=== PATIENT | male | born 1980 | race Caucasian/White ===

== ENCOUNTER 2020-03-18 08:13 | Inpatient (IN) | payer SELFPAY ==
[~2020-03-18] VITALS: Ht 170.2 cm; Wt 66.4 kg
[2020-03-18] MEDS ORDERED: ONDANSETRON PF 4 MG/2 ML VIAL. IVP ONE (08:30)
[2020-03-18] MEDS ORDERED: IV NORMAL SALINE 1,000ML 1,000 ML IV SCH (08:30)
[2020-03-18] MEDS ORDERED: FAMOTIDINE 20 MG/2 ML VIAL IVP ONE (08:30)
[2020-03-18 08:57] LABS: CALCIUM 9.5 mg/dL (8.5-10.1); CREATININE 1.2 mg/dL (0.7-1.3); GFR 67.1; POTASSIUM 4.1 mmol/L (3.5-5.1)
[2020-03-18 09:01] LABS: BASO # 0.1 x10^3/uL (0.0-0.2); BASO % 1 % (0-3); EOS % 1 % (0-3); HEMATOCRIT 44.3 % (39.0-53.0); HEMOGLOBIN 14.8 g/dL (13.0-17.5); LYMPH # 1.1 x10^3/uL (1.0-4.8); LYMPH % 12 % (24-48); MEAN CORPUSCULAR HEMOGLOBIN 32 pg (25-35); MEAN CORPUSCULAR HGB CONC 33 g/dL (31-37); MEAN CORPUSCULAR VOLUME 95 fL (79-100); MONO # 0.6 x10^3/uL (0.0-1.1); MONO % 6 % (0-9); NEUT # 7.7 x10^3uL (1.8-7.7); NEUT % 81 % (31-73); PLATELET COUNT 275 x10^3/uL (140-400); RED BLOOD COUNT 4.66 x10^6/uL (4.30-5.70); RED CELL DISTRIBUTION WIDTH 13.8 % (11.5-14.5); WHITE BLOOD COUNT 9.4 x10^3/uL (4.0-11.0)
[2020-03-18 09:04] LABS: ALBUMIN 4.5 g/dL (3.4-5.0); DIRECT BILIRUBIN 0.2 mg/dL (0.0-0.2); TOTAL BILIRUBIN 0.8 mg/dL (0.2-1.0); TOTAL PROTEIN 7.5 g/dL (6.4-8.2)
[2020-03-18] MEDS ORDERED: HALOPERIDOL LACT 5 MG/ML VIAL. IVP ONE (09:15)
[2020-03-18] MEDS ORDERED: IOHEXOL 300 MG/ML 75 ML VIAL. IV ONE (09:30)
[2020-03-18] MEDS ORDERED: CONTRAST GIVEN. MC PRN (09:30)
--- NOTE | 2020-03-18 10:43 | RAD ---
EXAMINATION: CT ABDOMEN+PELVIS W (CT ABDOMEN/PELVIS WITH IV CONTRAST) CLINICAL HISTORY: Right upper quadrant pain TECHNIQUE: CT of the abdomen and pelvis was performed using standard technique, scanning from just ab ove the dome of the diaphragm to the symphysis pubis following administration of intravenous contrast . CT Dose Reduction Employed: One or more of the following individualized dose reduction techniques wer e utilized for this examination: 1. Automated exposure control 2. Adjustment of the mA and/or kV ac cording to patient size 3. Use of iterative reconstruction technique. COMPARISON: None FINDINGS: Partially visualized heart and lung bases unremarkable. Periportal edema. No focal hepatic lesion. No definite biliary ductal dilation. Cholecystectomy. Panc reas, spleen, adrenal glands, and kidneys unremarkable. Mildly filled urinary bladder. No pelvic mass or free fluid. No bowel dilation or definite wall thickening, though lack of adequate distention throughout much of the colon limits evaluation for wall thickening. No abdominal aortic or iliac artery aneurysm. No significant lymphadenopathy. No acute osseous abnormality. IMPRESSION: Nonspecific periportal edema, otherwise no evidence of acute abdominopelvic abnormality. Electronically signed by: Ralph Chinchilla DO (03/18/2020 10:41 AM) APRIL
[2020-03-18] MEDS ORDERED: HYDROmorphone PF 1 MG/ML DISP.SYRIN IVP ONE (11:15)
--- NOTE | 2020-03-18 11:20 | PHYS DOC ---
Past History Past Medical History: Pancreatitis Past Surgical History: Cholecystectomy Alcohol Use: None General Adult EDM: Chief Complaint: ABDOMINAL PAIN HPI: HPI: 39-year-old male past medical history significant for pancreatitis and daily marijuana use, presents to the ED with complaints of "I just got to sleep, I've been having belly pain with nausea and vomiting," that started 3 or 4 days ago with associated nausea, nonbloody nonbilious vomiting and loose watery diarrhea. Patient reports he routinely has pancreatitis approximately every year and was last admitted 1 year ago. Patient reports his daily marijuana use helps his stomach problems-last smoked this morning. History of cholecystectomy 5 years ago. Has no routine primary care physician and does not take daily medications. Denies any alcohol or IV drug use. When asked the cause of his pancreatitis he says, my diet," that he was advised to avoid fatty and greasy foods. Denies any h/o cannabinoid hyperemesis syndrome. Reports no sick contacts and has not had Covid. Diarrhea is 3-4 episodes daily. No recent antibiotics. Review of Systems: Review of Systems: Constitutional: Denies fever or chills Eyes: Denies change in visual acuity HENT: Denies nasal congestion or sore throat Respiratory: Denies cough or shortness of breath or hemoptysis Cardiovascular: Denies chest pain or edema GI: Denies melena, hematochezia, hematemesis : Denies dysuria Musculoskeletal: Denies back pain or joint pain Integument: Denies rash Neurologic: Denies headache, focal weakness or sensory changes Endocrine: Denies polyuria or polydipsia Lymphatic: Denies swollen glands Psychiatric: Denies depression or anxiety Current Medications: Current Meds: Current Medications Medications (Trade) Dose Ordered Sig/Antoni Start Time Stop Time Status Last Admin Dose Admin Famotidine (Pepcid Vial) 20 mg 1X ONCE 03/18/20 08:30 03/18/20 08:37 DC 03/18/20 08:50 20 MG Haloperidol Lactate (Haldol) 5 mg 1X ONCE 03/18/20 09:15 03/18/20 09:21 DC Hydromorphone HCl (Dilaudid) 1 mg 1X ONCE 03/18/20 11:15 03/18/20 11:16 DC Info (Do NOT chart on this entry -- for MONITORING) 1 each PRN DAILY PRN 03/18/20 09:30 12/14/20 09:29 Iohexol (Omnipaque 300 Mg/ml) 75 ml 1X ONCE 03/18/20 09:30 03/18/20 09:31 DC Ondansetron HCl (Zofran) 4 mg 1X ONCE 03/18/20 08:30 03/18/20 08:37 DC 03/18/20 08:50 4 MG Sodium Chloride 1,000 ml @ 1,000 mls/hr Q1H 03/18/20 08:30 03/18/20 09:29 DC 03/18/20 08:49 1,000 MLS/HR Allergies: Allergies: Allergies Coded Allergies Type Severity Reaction Last Updated Verified No Known Drug Allergies 03/18/20 No Physical Exam: PE: Constitutional: no acute distress, non-toxic appearance, sleeping in ed room, comfrtable appearing, hops out of stretcher to show me location of abdominal pain HENT: Normocephalic, atraumatic, Eyes: EOMI, conjunctiva normal, no discharge. Neck: Normal range of motion, supple, Cardiovascular: S1/2 present, regular rhythm Lungs & Thorax: Speaking in full sentences, bilateral equal chest rise, no tachypnea or increased work of breathing Abdomen: soft, ruq ttp, no active n/v Skin: Warm, dry, no erythema, no rash. [] Back: No tenderness, no CVA tenderness. [] Extremities: No tenderness, no cyanosis, no edema Neurologic: Alert and oriented X 3, normal motor function, normal sensory function, no focal deficits noted. [] Psychologic: Affect normal, judgement normal, mood normal. [] Current Patient Data: Labs: Laboratory Tests Test 03/18/20 08:25 White Blood Count 9.4 x10^3/uL (4.0-11.0) Red Blood Count 4.66 x10^6/uL (4.30-5.70) Hemoglobin 14.8 g/dL (13.0-17.5) Hematocrit 44.3 % (39.0-53.0) Mean Corpuscular Volume 95 fL (79-100) Mean Corpuscular Hemoglobin 32 pg (25-35) Mean Corpuscular Hemoglobin Concent 33 g/dL (31-37) Red Cell Distribution Width 13.8 % (11.5-14.5) Platelet Count 275 x10^3/uL (140-400) Neutrophils (%) (Auto) 81 % (31-73) H Lymphocytes (%) (Auto) 12 % (24-48) L Monocytes (%) (Auto) 6 % (0-9) Eosinophils (%) (Auto) 1 % (0-3) Basophils (%) (Auto) 1 % (0-3) Neutrophils # (Auto) 7.7 x10^3uL (1.8-7.7) Lymphocytes # (Auto) 1.1 x10^3/uL (1.0-4.8) Monocytes # (Auto) 0.6 x10^3/uL (0.0-1.1) Eosinophils # (Auto) 0.0 x10^3/uL (0.0-0.7) Basophils # (Auto) 0.1 x10^3/uL (0.0-0.2) Sodium Level 141 mmol/L (136-145) Potassium Level 4.1 mmol/L (3.5-5.1) Chloride Level 104 mmol/L (98-107) Carbon Dioxide Level 27 mmol/L (21-32) Anion Gap 10 (6-14) Blood Urea Nitrogen 21 mg/dL (8-26) Creatinine 1.2 mg/dL (0.7-1.3) Estimated GFR (Cockcroft-Gault) 67.1 Glucose Level 128 mg/dL (70-99) H Calcium Level 9.5 mg/dL (8.5-10.1) Total Bilirubin 0.8 mg/dL (0.2-1.0) Direct Bilirubin 0.2 mg/dL (0.0-0.2) Aspartate Amino Transferase (AST) 17 U/L (15-37) Alanine Aminotransferase (ALT) 26 U/L (16-63) Alkaline Phosphatase 38 U/L (46-116) L Creatine Kinase 160 U/L (39-308) Troponin I Quantitative < 0.017 ng/mL (0-0.055) Total Protein 7.5 g/dL (6.4-8.2) Albumin 4.5 g/dL (3.4-5.0) Lipase 1218 U/L (73-393) H Vital Signs: Vital Signs Date Time Temp Pulse Resp B/P (MAP) Pulse Ox O2 Delivery O2 Flow Rate FiO2 03/18/20 08:34 97.4 53 18 112/57 (75) 99 Room Air EKG: EKG: Sinus arrhythmia at 68 bpm, no axis deviation, normal intervals, T wave inversion V2, no ST elevations or ST depressions Radiology/Procedures: Radiology/Procedures: IMAGING REPORT Signed PATIENT: DARRIN SINGH ACCOUNT: [id number] : 1980 LOCATION: ER AGE: 39 SEX: M EXAM STATUS: REG ER ORD. PHYSICIAN: KEYANA GONZALES DO REASON: ruq pain PROCEDURE: CT ABD PELV W/ IV CONTRST ONLY EXAMINATION: CT ABDOMEN+PELVIS W (CT ABDOMEN/PELVIS WITH IV CONTRAST) CLINICAL HISTORY: Right upper quadrant pain TECHNIQUE: CT of the abdomen and pelvis was performed using standard technique, scanning from just above the dome of the diaphragm to the symphysis pubis following administration of intravenous contrast. CT Dose Reduction Employed: One or more of the following individualized dose reduction techniques were utilized for this examination: 1. Automated exposure control 2. Adjustment of the mA and/or kV according to patient size 3. Use of iterative reconstruction technique. COMPARISON: None FINDINGS: Partially visualized heart and lung bases unremarkable. Periportal edema. No focal hepatic lesion. No definite biliary ductal dilation. Cholecystectomy. Pancreas, spleen, adrenal glands, and kidneys unremarkable. Mildly filled urinary bladder. No pelvic mass or free fluid. No bowel dilation or definite wall thickening, though lack of adequate distention throughout much of the colon limits evaluation for wall thickening. No abdominal aortic or iliac artery aneurysm. No significant lymphadenopathy. No acute osseous abnormality. IMPRESSION: Nonspecific periportal edema, otherwise no evidence of acute abdominopelvic abnormality. Electronically signed by: Ralph Forrester DO (03/18/2020 10:41 AM) [facility] DICTATED AND SIGNED BY: RALPH FORRESTER DO DATE: 03/18/20 1026 CC: PCP,JOHNNY; KEYANA GONZALES DO ~MTH0 0 Heart Score: Risk Factors: Risk Factors: DM, Current or recent (<one month) smoker, HTN, HLP, family history of CAD, obesity. Risk Scores: Score 0 - 3: 2.5% MACE over next 6 weeks - Discharge Home Score 4 - 6: 20.3% MACE over next 6 weeks - Admit for Clinical Observation Score 7 - 10: 72.7% MACE over next 6 weeks - Early Invasive Strategies Course & Med Decision Making: Course & Med Decision Making Pertinent Labs and Imaging studies reviewed. (See chart for details) Concern for acute pancreatitis, nausea and vomiting well controlled. Patient afebrile with no leukocytosis, normal liver functions. Drug screen pending. CT abdomen pelvis with nonspecific periportal edema. Patient n.p.o. and started on fluids/analgesia. Accepted by Dr. Pierre for medical admission. Patient stable at time of admission and agrees with this plan. I have spoken with the patient and/or caregivers. I have explained the patient's condition, diagnosis and treatment plan based on the information available to me at this time. I have answered the patient's and/or caregivers questions and answered any concerns. The patient and/or caregivers have as good an understanding of the patient's diagnosis, condition and treatment plan as can be expected at this point. The patient has been stabilized within the capability of the emergency department. The patient will be transported for further care and management or will be moved to an observation or inpatient service. I have communicated with the staff or medical practitioner taking over this patient's care. Bradley Disclaimer: Bradley Disclaimer: This electronic medical record was generated, in whole or in part, using a voice recognition dictation system. Departure Departure: Impression: Primary Impression: Acute pancreatitis Disposition: ADMITTED INPT THIS HOSP Admitting Physician: Quentin Pierre Condition: STABLE Referrals: PCP,JOHNNY (PCP) KEYANA GONZALES DO Mar 18, 2020 11:20
[2020-03-18] MEDS ORDERED: ONDANSETRON PF 4 MG/2 ML VIAL. IVP PRN (11:30)
[2020-03-18 12:47] VITALS: BP 105/60
[2020-03-18] MEDS: HYDROmorphone PF 1 MG/ML DISP.SYRIN IV PRN ×2 (14:11→19:33)
[2020-03-18] MEDS: IV NORMAL SALINE 1,000ML 1,000 ML IV SCH (14:11)
[2020-03-18 14:35] VITALS: BP 122/74
--- NOTE | 2020-03-18 16:01 | EKG ---
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
[2020-03-18 20:04] VITALS: BP 111/65
[2020-03-18 23:42] VITALS: BP 122/76
[2020-03-19] MEDS: IV NORMAL SALINE 1,000ML 1,000 ML IV SCH (00:09)
[2020-03-19] MEDS: HYDROmorphone PF 1 MG/ML DISP.SYRIN IV PRN ×2 (00:47→07:47)
[2020-03-19 05:51] VITALS: BP 113/67
[2020-03-19] MEDS ORDERED: FLU VACC QS 2020-21(6MOS+)/PF 0.5 ML SYRINGE. VAX IM ONE (09:00)
--- NOTE | 2020-03-19 10:51 | HP ---
ADMIT DATE: 03/18/2020 ATTENDING PHYSICIAN: Dr. Martines. CHIEF COMPLAINT: Abdominal pain. HISTORY OF PRESENT ILLNESS: The patient is a 39-year-old gentleman admitted through the ED with abdominal pain, diffuse in nature with nausea and one episode of emesis started about 3 days ago. He has had nonbloody, nonbilious vomiting and loose watery stools. He was found to have pancreatitis. The CT scan was not confirmatory, but the lipase is elevated at 1200. He reports daily marijuana use to help with nausea. He had a cholecystectomy 5 years ago. He adamantly denies any alcohol use. No other recreational drugs besides a pot. He has no routine care. He is unemployed. He is not on any medications. He does not have cholesterol issues by history. When asked about the cause of the pancreatitis, he said my diet. He denies any cannabinoid hyperemesis syndrome. No sick contact, no recent COVID exposure. Diarrhea is 3-4 episodes a day. PAST MEDICAL HISTORY: Significant for cholecystectomy, recurrent idiopathic pancreatitis, chronic marijuana use. No history of high blood pressure or diabetes. FAMILY HISTORY: There is no reported history of cancer in the family, heart disease or diabetes. SOCIAL HISTORY: He is a smoker. He denies any alcohol use, has not drank alcohol since 2015. CURRENT MEDICATIONS: None. ALLERGIES: He has no known drug allergies. PAST SURGICAL HISTORY: Cholecystectomy. REVIEW OF SYSTEMS: Significant for the GI symptoms. No recent COVID exposure. No fevers or chills. No palpitation. All other systems reviewed and determined to be negative. PHYSICAL EXAMINATION: GENERAL: When I saw him, this is a pleasant male in no acute distress. INITIAL VITAL SIGNS: Showed a blood pressure 113/67, temperature 97.7 degrees Fahrenheit, pulse is 61 and regular, oxygen saturation 99% on room air. HEENT: Head is without trauma. Pupils are reactive. Sclerae are nonicteric. Oropharynx is clear. NECK: Supple, no bruits identified. LUNGS: Otherwise clear. CARDIOVASCULAR: Showed regular heart tones. ABDOMEN: Soft. There is no guarding or rebound tenderness. Bowel sounds were normoactive. There are no masses palpated. EXTREMITIES: Showed no cyanosis or edema. NEUROLOGIC: Focally intact. Speech is fluent. Marketing Analytics Manager intact and symmetrical. SKIN: Warm and dry. PERTINENT LABORATORY AND X-RAY STUDIES: Lipase was 1218. Cardiac enzymes negative. Electrolytes within normal range. White count 9400 with a hemoglobin of 14.8 g/dL. CT scan showed no obvious pancreatic inflammation, no obstructive pattern identified. ASSESSMENT: 1. A 39-year-old gentleman with idiopathic pancreatitis. 2. History of previous cholecystectomy. 3. History of marijuana use. 4. Associated nausea and diarrhea. PLAN: 1. Observation status in the ED. 2. N.p.o. 3. Pain and nausea control. 4. Gentle IV hydration. MARY MARTINES MD DR: EDNA/sasha JOB#: [id number] / [id number]
--- NOTE | 2020-03-19 19:12 | DS ---
DATE OF DISCHARGE: 03/19/2020 ATTENDING PHYSICIAN: Dr. Martines. FINAL DISCHARGE DIAGNOSES: 1. Recurrent idiopathic pancreatitis. 2. History of previous cholecystectomy. 3. Nausea with diarrhea, resolved. HISTORY AND PHYSICAL: This is a 39-year-old gentleman who admits to chronic daily marijuana use. He does not drink any alcohol. His gallbladder has been removed. He has recurrent pancreatitis occurring once or twice a year. He has no idea of symptoms. He has no local physician. His compliance is questionable and he adamantly denies any alcohol use. He was admitted then for treatment of idiopathic pancreatitis. He had a lipase level of 1218. However, the CT of the abdomen did not verify any inflammation around the pancreas. PHYSICAL EXAMINATION: Please see the dictated note. PERTINENT LABORATORY AND X-RAY STUDIES: CBC showed a hemoglobin 14.8 grams and white count 9400. Electrolytes within normal range. Blood sugars were normal. Lipase was 1218. CT of the abdomen and pelvis as noted. COURSE IN THE HOSPITAL: The patient was admitted overnight. He was given IV hydration, kept n.p.o. The next day, he felt better and he wanted to eat. We advanced his diet. He tolerated this well. His physical exam was mostly unremarkable. He wanted to go home. I felt this is reasonable. I recommend a very bland diet sparingly and Gatorade orally. In addition, he requested some pain medicine. He responded well to Ultram 100 mg p.o. q.8 hours as needed. In addition, I strongly suggested he find a primary care doctor. Whether or not he will accomplish this remains to be seen. In any event, the patient was then discharged from our hospital the next hospital day in stable condition with explicit instructions for followup care. MARY MARTINES MD DR: EDNA/sasha JOB#: [id number] / [id number]
== END 2020-03-19 09:02 | disposition home or self-care (01) | DRG 440 ==
LOC: ER 08:13 → 1 SOUTH 12:16
PROVIDERS: ADMIT Hospitalist; ATTEND Hospitalist
DX: K85.90 Acute pancreatitis without necrosis or infection, unspecified (principal); K86.1 Other chronic pancreatitis; Z90.49 Acquired absence of other specified parts of digestive tract; F17.200 Nicotine dependence, unspecified, uncomplicated; F12.90 Cannabis use, unspecified, uncomplicated
CPT/HCPCS: 36415; 74177; 80048; 80076; 82550; 83690; 84484; 85025; 90471; 90686; 93005; 96374; 96375; J1170; J2405; J3490; 99285-25; J7030

== ENCOUNTER 2020-03-29 12:06 | Emergency (ER) | payer SELFPAY ==
[~2020-03-29] VITALS: Ht 170.2 cm; Wt 66.0 kg
[2020-03-29] MEDS ORDERED: PROCHLORPERAZINE 10 MG/2 ML VIAL. IV ONE (12:15)
[2020-03-29] MEDS ORDERED: IV NORMAL SALINE 1,000ML 1,000 ML IV ONE (12:15)
[2020-03-29] MEDS ORDERED: MORPHINE SULFATE 4 MG/ML DISP.SYRIN. IV ONE ×2 (12:15→14:00)
--- NOTE | 2020-03-29 12:31 | PHYS DOC ---
Past History Past Medical History: Pancreatitis (MAGDALENE ALCANTARA APRN) Past Surgical History: Cholecystectomy (MAGDALENE ALCANTARA APRN) Alcohol Use: None (MAGDALENE ALCANTARA APRN) General Adult EDM: Chief Complaint: ABDOMINAL PAIN HPI: HPI: Patient is a 39-year-old male who presents with abdominal pain, nausea. Patient was seen in the ER 2 weeks ago and admitted to the hospital for pancreatitis. Patient has a history of chronic pancreatitis. Patient states he woke up at 430 this morning with pain and vomiting and unable to keep anything down. Patient is rating pain 10 out of 10. Patient denies fever. Patient states that he has not used alcohol since 2015. (MAGDALENE ALCANTARA APRN) Review of Systems: Review of Systems: Constitutional: Denies fever or chills Eyes: Denies change in visual acuity HENT: Denies nasal congestion or sore throat Respiratory: Denies cough or shortness of breath Cardiovascular: Denies chest pain or edema GI: Reports abdominal pain, nausea, vomiting. Denies bloody stools or diarrhea : Denies dysuria Musculoskeletal: Denies back pain or joint pain Integument: Denies rash Neurologic: Denies headache, focal weakness or sensory changes Endocrine: Denies polyuria or polydipsia Lymphatic: Denies swollen glands Psychiatric: Denies depression or anxiety (MAGDALENE ALCANTARA APRN) Current Medications: Current Meds: Current Medications Medications (Trade) Dose Ordered Sig/Antoni Start Time Stop Time Status Last Admin Dose Admin Morphine Sulfate (Morphine 4mg Syringe) 4 mg 1X ONCE 03/29/20 12:15 03/29/20 12:25 DC Prochlorperazine Edisylate (Compazine) 10 mg 1X ONCE 03/29/20 12:15 03/29/20 12:25 DC Sodium Chloride 1,000 ml @ 1,000 mls/hr 1X ONCE 03/29/20 12:15 03/29/20 13:14 (MAGDALENE ALCANTARA APRN) Allergies: Allergies: Allergies Coded Allergies Type Severity Reaction Last Updated Verified No Known Drug Allergies 03/18/20 No (MAGDALENE ALCANTARA APRN) Physical Exam: PE: Constitutional: Well developed, well nourished, no acute distress, non-toxic appearance. [] HENT: Normocephalic, atraumatic, bilateral external ears normal, oropharynx moist, no oral exudates, nose normal. [] Eyes: PERRLA, EOMI, conjunctiva normal, no discharge. [] Neck: Normal range of motion, no tenderness, supple, no stridor. [] Cardiovascular:Heart rate regular rhythm, no murmur [] Lungs & Thorax: Bilateral breath sounds clear to auscultation [] Abdomen: Bowel sounds normal, soft, no masses, no pulsatile masses. Tender to palpation [] Skin: Warm, dry, no erythema, no rash. [] Back: No tenderness, no CVA tenderness. [] Extremities: No tenderness, no cyanosis, no clubbing, ROM intact, no edema. [] Neurologic: Alert and oriented X 3, normal motor function, normal sensory function, no focal deficits noted. [] Psychologic: Affect normal, judgement normal, mood normal. [] (MAGDALENE ALCANTARA APRN) EKG: EKG: Sinus rhythm, heart rate 52 bpm. Intervals normal, axis normal. Otherwise normal EKG. [] (MAGDALENE ALCANTARA APRN) Radiology/Procedures: Radiology/Procedures: []Right upper quadrant ultrasound 03/29/2020 INDICATION: Abdominal pain. History of pancreatitis. COMPARISON STUDY: None FINDINGS: Visualized pancreas is mildly heterogenous echotexture which could reflect pancreatitis. Visualized aorta is unremarkable. Visualized IVC is unremarkable. The right kidney is normal in appearance measuring 10 point centimeters in length. Hepatic parenchyma is grossly unremarkable. Focal liver lesions are identified. The gallbladder is surgically absent. Given this, the common bile duct is within normal limits in regards to diameter at 6 mm. No choledocholithiasis is identified by ultrasound. No ascites is identified. IMPRESSION: 1. No definitively acute abnormality is identified 2. Mild pancreatic heterogeneity is nonspecific but could reflect pancreatitis. Electronically signed by: Ren Rowe MD (03/29/2020 1:18 PM) [id number] EXAM: CT Abdomen with IV contrast INDICATION: Reason: abnormal labs, epigastric pain, pancreatitis / Spl. Instructions: PLEASE COMPARE TO EXAM 03/18 / History: TECHNIQUE: Multi-detector row CT images were acquired from the lung bases through the abdomen with the use of IV contrast. Sagittal and coronal images were acquired from the transaxial data. All CT scans performed at this facility utilize dose optimization techniques as appropriate to the exam, including the following: Automated exposure control and adjustment of the mA and/or KV according to patient size (this includes techniques or standardized protocols for targeted exams where dose is indication/reason for exam). IV CONTRAST: Administered ORAL CONTRAST: none COMPARISON: None FINDINGS: LOWER CHEST: Unremarkable LIVER: Unremarkable BILIARY SYSTEM: Gallbladder is surgically absent. Bile ducts are not dilated. PANCREAS: Unremarkable SPLEEN: Unremarkable ADRENALS: Unremarkable KIDNEYS & URETERS: Unremarkable GASTROINTESTINAL: The stomach, small bowel, and colon are unremarkable. There is borderline wall thickening in the distal thoracic esophagus. The appendix is normal. MESENTERY/PERITONEUM/RETROPERITONEUM: Unremarkable VASCULAR: Unremarkable LYMPH NODES: No adenopathy OSSEOUS & SOFT TISSUES: Unremarkable IMPRESSION: Borderline wall thickening of the distal thoracic esophagus. Correlate clinic ally for any evidence of esophagitis. Otherwise no CT abnormality is seen to explain the patient's symptoms. Electronically signed by: Kodi Fan MD (03/29/2020 2:27 PM) [id number] (MAGDALENE ALCANTARA APRN) Heart Score: Risk Factors: Risk Factors: DM, Current or recent (<one month) smoker, HTN, HLP, family history of CAD, obesity. Risk Scores: Score 0 - 3: 2.5% MACE over next 6 weeks - Discharge Home Score 4 - 6: 20.3% MACE over next 6 weeks - Admit for Clinical Observation Score 7 - 10: 72.7% MACE over next 6 weeks - Early Invasive Strategies (MAGDALENE ALCANTARA APRN) Course & Med Decision Making: Course & Med Decision Making Pertinent Labs and Imaging studies reviewed. (See chart for details) [] 39-year-old male presents with abdominal pain, nausea. Patient has a history of chronic pancreatitis. Will order abdominal ultrasound. Patient given 4 mg of morphine for pain and Compazine for nausea. US showed, No definitively acute abnormality is identified. Mild pancreatic heterogeneity is nonspecific but could reflect pancreatitis. Reassess patient's pain, patient reports pain much better and denies nausea. Patient is concerned about going home due to not being able to manage the pain. Patient states he was given Ultram for the pain when he was discharged, but unable to take it because of vomiting. Patient requesting pain medication. 4mg morphine given. Patient denies nausea. CT abdomen with contrast ordered. CT showed Borderline wall thickening of the distal thoracic esophagus. Correlate clinically for any evidence of esophagitis. Otherwise no CT abnormality is seen to explain the patient's symptoms. We will discharge patient to home. Patient to continue taking Ultram as prescribed for pain. Will prescribe pantoprazole for esophagitis. Patient to follow-up with PCP or return to ED with worsening symptoms. (MAGDALENE ALCANTARA APRN) Course & Med Decision Making I oversaw on the above date of service of this patient and discussed the care with the [employer]AL [employer]. I personally saw and evaluated patient and repeated certain aspects of history and physical exam, hemodynamically stable without any acute abdomen. I agree with the findings, plan of care, and disposition as documented. (SHANELL DOBSON DO) Bradley Disclaimer: Bradley Disclaimer: This electronic medical record was generated, in whole or in part, using a voice recognition dictation system. (MAGDALENE ALCANTARA APRN) Departure Departure: Impression: Primary Impression: Esophagitis Additional Impression: Pancreatitis Qualified Codes: K86.1 - Other chronic pancreatitis Disposition: 01 DC HOME SELF CARE/HOMELESS Condition: IMPROVED Referrals: PCP,NO (PCP) Patient Instructions: Esophagitis Additional Instructions: EMERGENCY DEPARTMENT GENERAL DISCHARGE INSTRUCTIONS Thank you for coming to [facility] (ED) today and trusting us with you care. We trust that you had a positivie experience in our Emergency Department. If you wish to speak to the department management, you may call the director at [phone]. YOUR FOLLOW UP INSTRUCTIONS ARE FOLLOWS: 1. Do you have a private Doctor? If you do not have a private doctor, please ask for a resource list of physicians or clinics that may be able to assist you with follow up care. 2. The Emergency Physician has interpreted your x-rays. The X-Ray specialist will also review them. If there is a change in the findings, you will be notified in 48 hours when at all possible. 3. A lab test or culture has been done, your results will be reviewed and you will be notified if you need a change in treatment. ADDITIONAL INSTRUCTIONS AND INFORMATION: 1. Your care today has been supervised by a physician who is specially trained in emergency care. Many problems require more than one evaluation for a complete diagnosis and treatment. We recommend that you schedule your follow up appointment as recommended to ensure complete treatment of you illness or injury. If you are unable to obtain follow up care and continue to have a problem, or if your condition worsens, we recommend that you return to the ED. 2. We are not able to safely determine your condition over the phone nor are we able to give sound medical advice over the phone. For these safety reasons, if you call for medical advice we will ask you to come to the ED for further evaluation. 3. If you have any questions regarding these discharge instructions please call the ED at [phone]. SAFETY INFORMATION: In the interest of safety, wellness, and injury prevention; we encourage you to wear your sealbelt, if you smoke; quite smoking, and we encourage family to use a protective helmet for bicycling and other sporting events that present an increased risk for head injury. IF YOUR SYMPTOMS WORSEN OR NEW SYMPTOMS DEVELOP, OR YOU HAVE CONCERNS ABOUT YOUR CONDITION; OR IF YOUR CONDITION WORSENS WHILE YOU ARE WAITING FOR YOUR FOLLOW UP APPOINTMENT; EITHER CONTACT YOUR PRIMARY CARE DOCTOR, THE PHYSICIAN WHOSE NAME AND NUMBER YOU WERE GIVEN, OR RETURN TO THE ED IMMEDIATELY. Scripts Ondansetron Hcl (ZOFRAN) 4 Mg Tablet 4 MG PO TID PRN PRN for NAUSEA, #9 TAB Prov: MAGDALENE ALCANTARA APRN 03/29/20 Pantoprazole Sodium (PANTOPRAZOLE SODIUM) 40 Mg Tablet.dr 40 MG PO DAILY for esophagitis for 30 Days, #30 TAB Prov: MAGDALENE ALCANTARA APRN 03/29/20 MAGDALENE ALCANTARA APRN Mar 29, 2020 12:31 SHANELL DOBSON DO Mar 30, 2020 07:49
[2020-03-29 13:03] LABS: BASO # 0.1 x10^3/uL (0.0-0.2); BASO % 1 % (0-3); EOS % 0 % (0-3); HEMATOCRIT 43.2 % (39.0-53.0); HEMOGLOBIN 14.6 g/dL (13.0-17.5); LYMPH % 11 % (24-48); MEAN CORPUSCULAR HEMOGLOBIN 32 pg (25-35); MEAN CORPUSCULAR HGB CONC 34 g/dL (31-37); MEAN CORPUSCULAR VOLUME 93 fL (79-100); MONO # 0.3 x10^3/uL (0.0-1.1); MONO % 4 % (0-9); NEUT # 7.9 x10^3uL (1.8-7.7); NEUT % 85 % (31-73); PLATELET COUNT 320 x10^3/uL (140-400); RED BLOOD COUNT 4.63 x10^6/uL (4.30-5.70); RED CELL DISTRIBUTION WIDTH 13.5 % (11.5-14.5); WHITE BLOOD COUNT 9.2 x10^3/uL (4.0-11.0)
[2020-03-29 13:11] LABS: CALCIUM 9.9 mg/dL (8.5-10.1); GFR 82.8; POTASSIUM 3.7 mmol/L (3.5-5.1)
--- NOTE | 2020-03-29 13:12 | EKG ---
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
[2020-03-29 13:17] LABS: ALBUMIN 4.6 g/dL (3.4-5.0); ALBUMIN/GLOBULIN RATIO 1.5 (1.0-1.7); TOTAL PROTEIN 7.6 g/dL (6.4-8.2)
--- NOTE | 2020-03-29 13:20 | RAD ---
Right upper quadrant ultrasound 03/29/2020 INDICATION: Abdominal pain. History of pancreatitis. COMPARISON STUDY: None FINDINGS: Visualized pancreas is mildly heterogenous echotexture which could reflect pancreatitis. V isualized aorta is unremarkable. Visualized IVC is unremarkable. The right kidney is normal in appear ance measuring 10 point centimeters in length. Hepatic parenchyma is grossly unremarkable. Focal live r lesions are identified. The gallbladder is surgically absent. Given this, the common bile duct is w ithin normal limits in regards to diameter at 6 mm. No choledocholithiasis is identified by ultrasoun d. No ascites is identified. IMPRESSION: 1. No definitively acute abnormality is identified 2. Mild pancreatic heterogeneity is nonspecific but could reflect pancreatitis. Electronically signed by: Ren Rowe MD (03/29/2020 1:18 PM) [id number]
[2020-03-29] MEDS ORDERED: IOHEXOL 300 MG/ML 75 ML VIAL. IV ONE (13:45)
[2020-03-29 13:57] LABS: BILIRUBIN,URINE NEG (NEG); CLARITY,URINE HAZY; COLOR,URINE YELLOW; GLUCOSE,URINE NEG (NEG); UROBILINOGEN,URINE 0.2 mg/dL (0.2 mg/dL)
[2020-03-29 13:58] LABS: NITRITE,URINE NEG (NEG)
[2020-03-29 14:12] LABS: BACTERIA,URINE 0 /HPF (0-FEW); WBC,URINE OCC /HPF (0-4)
[2020-03-29 14:13] LABS: SQUAMOUS EPITHELIAL CELL,UR OCC /LPF
[2020-03-29 14:14] LABS: AMORPHOUS SEDIMENT,UR PRESENT /HPF
--- NOTE | 2020-03-29 14:29 | RAD ---
EXAM: CT Abdomen with IV contrast INDICATION: Reason: abnormal labs, epigastric pain, pancreatitis / Spl. Instructions: PLEASE COMPARE TO EXAM 03/18 / History: TECHNIQUE: Multi-detector row CT images were acquired from the lung bases through the abdomen with th e use of IV contrast. Sagittal and coronal images were acquired from the transaxial data. All CT scan s performed at this facility utilize dose optimization techniques as appropriate to the exam, includi ng the following: Automated exposure control and adjustment of the mA and/or KV according to patient size (this includes techniques or standardized protocols for targeted exams where dose is indication/ reason for exam). IV CONTRAST: Administered ORAL CONTRAST: none COMPARISON: None FINDINGS: LOWER CHEST: Unremarkable LIVER: Unremarkable BILIARY SYSTEM: Gallbladder is surgically absent. Bile ducts are not dilated. PANCREAS: Unremarkable SPLEEN: Unremarkable ADRENALS: Unremarkable KIDNEYS & URETERS: Unremarkable GASTROINTESTINAL: The stomach, small bowel, and colon are unremarkable. There is borderline wall thic kening in the distal thoracic esophagus. The appendix is normal. MESENTERY/PERITONEUM/RETROPERITONEUM: Unremarkable VASCULAR: Unremarkable LYMPH NODES: No adenopathy OSSEOUS & SOFT TISSUES: Unremarkable IMPRESSION: Borderline wall thickening of the distal thoracic esophagus. Correlate clinically for any evidence of esophagitis. Otherwise no CT abnormality is seen to explain the patient's symptoms. Electronically signed by: Kodi Fan MD (03/29/2020 2:27 PM) [id number]
[2020-03-29] MEDS ORDERED: ONDA4TAB7 PO (14:45)
[2020-03-29] MEDS ORDERED: PANT40TA6 PO (14:45)
[2020-03-29 14:54] VITALS: BP 115/60
== END 2020-03-29 14:50 | disposition home or self-care (01) ==
LOC: ER 12:06
DX: K85.90 Acute pancreatitis without necrosis or infection, unspecified (principal); K20.90 Esophagitis, unspecified without bleeding; Z90.49 Acquired absence of other specified parts of digestive tract
CPT/HCPCS: 36415; 74160; 76705; 80053; 81001; 83690; 85025; 93005; 96361; 96374; 96375; 96376; 99285; J0780; J2270; J7030; Q9967

== ENCOUNTER 2021-01-10 09:11 | Emergency (ER) | payer SELFPAY ==
[~2021-01-10] VITALS: Ht 170.2 cm; Wt 71.1 kg
[~2021-01-10 09:11] MED LIST: ONDA4TAB7 PO; PANT40TA6 PO
[2021-01-10 09:15] VITALS: BP 133/73
[2021-01-10] MEDS ORDERED: DEXAMETHASONE SOD PHOS 10 MG/ML VIAL. PO ONE (09:45)
[2021-01-10] MEDS ORDERED: CYCL-331 PO (09:47)
--- NOTE | 2021-01-10 09:47 | PHYS DOC ---
Past History Past Medical History: Pancreatitis Past Surgical History: Cholecystectomy Alcohol Use: None General Adult EDM: Chief Complaint: LOWER EXT PAIN HPI: HPI: 40-year-old male presents with right hip and upper leg pain. The patient was playing pickup football with some friends on Friday. He was running to catch a ball and did not see the tractor. He ran nearly full speed into the side of the tractor. It hit him in the right upper leg buttocks. He is able to walk but he has lateral leg pain and tightness. It has not gotten better in the last few days and he is unable to get into his primary care physician for 2 weeks. He decided he should have it evaluated. He denies numbness, tingling, altered sensation. It is difficult to cross his right leg due to stiffness and pressure. He has no other complaints this time. Review of Systems: Review of Systems: Constitutional: Denies fever or chills Eyes: Denies change in visual acuity HENT: Denies nasal congestion or sore throat Respiratory: Denies cough or shortness of breath Cardiovascular: Denies chest pain or edema GI: Denies abdominal pain, nausea, vomiting, bloody stools or diarrhea : Denies dysuria Musculoskeletal: Right hip and upper leg pain Integument: Denies rash Neurologic: Denies headache, focal weakness or sensory changes Endocrine: Denies polyuria or polydipsia Lymphatic: Denies swollen glands Psychiatric: Denies depression or anxiety Allergies: Allergies: Allergies Coded Allergies Type Severity Reaction Last Updated Verified No Known Drug Allergies 03/18/20 No Physical Exam: PE: Constitutional: Well developed, well nourished, no acute distress, non-toxic appearance. [] HENT: Normocephalic, atraumatic, bilateral external ears normal, oropharynx moist, no oral exudates, nose normal. [] Eyes: PERRLA, EOMI, conjunctiva normal, no discharge. [] Neck: Normal range of motion, no tenderness, supple, no stridor. [] Cardiovascular:Heart rate regular rhythm, no murmur [] Lungs & Thorax: Bilateral breath sounds clear to auscultation [] Abdomen: Bowel sounds normal, soft, no tenderness, no masses, no pulsatile masses. [] Skin: 4 cm ecchymosis of the anterior lateral right pelvis [] Back: No tenderness, no CVA tenderness. [] Extremities: Muscle spasm and tightness of the right lateral thigh and buttocks. [] Neurologic: Alert and oriented X 3, normal motor function, normal sensory function, no focal deficits noted. [] Psychologic: Affect normal, judgement normal, mood normal. [] EKG: EKG: [] Radiology/Procedures: Radiology/Procedures: [] Heart Score: C/O Chest Pain: N/A Risk Factors: Risk Factors: DM, Current or recent (<one month) smoker, HTN, HLP, family history of CAD, obesity. Risk Scores: Score 0 - 3: 2.5% MACE over next 6 weeks - Discharge Home Score 4 - 6: 20.3% MACE over next 6 weeks - Admit for Clinical Observation Score 7 - 10: 72.7% MACE over next 6 weeks - Early Invasive Strategies Course & Med Decision Making: Course & Med Decision Making Pertinent Labs and Imaging studies reviewed. (See chart for details) Patient appears to have a superficial hematoma of the anterior hip and surrounding swelling and muscle spasm. This should improve on its own. I will give him a dose of steroids in the ER and Flexeril for home to help with his muscle spasms. He is stable for discharge at this time. [] Dragon Disclaimer: Dragon Disclaimer: This electronic medical record was generated, in whole or in part, using a voice recognition dictation system. Departure Departure: Impression: Primary Impression: Contusion of right leg Referrals: PCP,JOHNNY (PCP) Patient Instructions: Contusion, [id number] Scripts Cyclobenzaprine Hcl (CYCLOBENZAPRINE HCL) 10 Mg Tablet 1 TAB PO TID PRN for MUSCLE SPASMS, #30 TAB Prov: SANA SCHOFIELD DO 01/10/21 SANA SCHOFIELD DO Jan 10, 2021 09:47
== END 2021-01-10 09:56 | disposition home or self-care (01) ==
LOC: ER 09:11
DX: S80.11XA Contusion of right lower leg, initial encounter (principal); W18.09XA Striking against other object with subsequent fall, initial encounter; Y93.02 Activity, running; Y92.89 Other specified places as the place of occurrence of the external cause; Y99.8 Other external cause status
CPT/HCPCS: 99283; J1100

== ENCOUNTER 2021-03-02 08:45 | Inpatient (IN) | payer SELFPAY ==
[~2021-03-02] VITALS: Ht 157.5 cm; Wt 65.4 kg
[~2021-03-02 08:45] MED LIST changes: +CYCL10TA19 PO
[2021-03-02] MEDS ORDERED: ONDANSETRON PF 4 MG/2 ML VIAL. ONE ×2 (08:56→08:57)
[2021-03-02] MEDS ORDERED: IV NORMAL SALINE 1,000ML 1,000 ML IV ONE (09:00)
[2021-03-02] MEDS ORDERED: ONDANSETRON PF 4 MG/2 ML VIAL. IVP ONE ×2 (09:00→09:15)
--- NOTE | 2021-03-02 09:20 | PHYS DOC ---
Past History Past Medical History: Pancreatitis Past Surgical History: Cholecystectomy Alcohol Use: Rarely General Adult EDM: Chief Complaint: NAUSEA/VOMITING/DIARRHEA HPI: HPI: 40-year-old male presents with nausea, vomiting, and epigastric pain. Patient states he has a history of pancreatitis. When he has had pain like this in the past that is what he has been told. He has been admitted to the hospital in the past. He denies drinking alcohol. He states that he does not know the cause of his pancreatitis. He has had dry heaving in the emergency room. He states that he has moderate epigastric pain. He denies fever or chills. No history of pancreatic abscess. Review of Systems: Review of Systems: Constitutional: Denies fever or chills Eyes: Denies change in visual acuity HENT: Denies nasal congestion or sore throat Respiratory: Denies cough or shortness of breath Cardiovascular: Denies chest pain or edema GI: Epigastric abdominal pain, nausea, vomiting. : Denies dysuria Musculoskeletal: Denies back pain or joint pain Integument: Denies rash Neurologic: Denies headache, focal weakness or sensory changes Endocrine: Denies polyuria or polydipsia Lymphatic: Denies swollen glands Psychiatric: Denies depression or anxiety Current Medications: Current Meds: Current Medications Medications (Trade) Dose Ordered Sig/Antoni Start Time Stop Time Status Last Admin Dose Admin Diphenhydramine HCl (Benadryl) 50 mg 1X ONCE 03/02/21 09:30 03/02/21 09:31 UNV Ketorolac Tromethamine (Toradol 30mg Vial) 30 mg 1X ONCE 03/02/21 09:30 03/02/21 09:31 UNV Ondansetron HCl (Zofran) 4 mg 1X ONCE 03/02/21 09:15 03/02/21 09:16 DC Sodium Chloride 1,000 ml @ 1,000 mls/hr 1X ONCE 03/02/21 09:00 03/02/21 09:59 03/02/21 09:04 1,000 MLS/HR Allergies: Allergies: Allergies Coded Allergies Type Severity Reaction Last Updated Verified No Known Drug Allergies 03/18/20 No Physical Exam: PE: Constitutional: Well developed, well nourished, no acute distress, non-toxic appearance. [] HENT: Normocephalic, atraumatic, bilateral external ears normal, oropharynx moist, no oral exudates, nose normal. [] Eyes: PERRLA, EOMI, conjunctiva normal, no discharge. [] Neck: Normal range of motion, no tenderness, supple, no stridor. [] Cardiovascular: Heart rate 48, regular rhythm, no murmur [] Lungs & Thorax: Bilateral breath sounds clear to auscultation [] Abdomen: Bowel sounds normal, soft, mild epigastric tenderness, no masses, no pulsatile masses. [] Skin: Warm, dry, no erythema, no rash. [] Back: No tenderness, no CVA tenderness. [] Extremities: No tenderness, no cyanosis, no clubbing, ROM intact, no edema. [] Neurologic: Alert and oriented X 3, normal motor function, normal sensory function, no focal deficits noted. [] Psychologic: Affect dramatic, judgement normal, mood normal. [] Current Patient Data: Vital Signs: Vital Signs Date Time Temp Pulse Resp B/P (MAP) Pulse Ox O2 Delivery O2 Flow Rate FiO2 03/02/21 09:06 96.6 59 26 140/74 (96) 100 Room Air EKG: EKG: Sinus rhythm, rate 54, normal axis, no ST elevation or depression. [] Radiology/Procedures: Radiology/Procedures: [] Impressions: INDICATION: Reason: pancreatitis / Spl. Instructions: / History: Abdomen pain. COMPARISON: March 2020 TECHNIQUE: Axial CT images were obtained through the abdomen and pelvis with intravenous contrast. One or more of the following individualized dose reduction techniques were utilized for this examination: 1. Automated exposure control; 2. Adjustment of the mA and/or kV according to patient size; 3. Use of iterative reconstruction technique. FINDINGS: Small hiatal hernia. Vascular: No abdominal aortic aneurysm. Hepatobiliary: Postcholecystectomy changes. Mild low density within periportal region. Pancreas: No adjacent fluid collection. Spleen: Spleen unremarkable. Renal/Bladder: Minimal urine within the bladder. No hydronephrosis. Subcentimeter low-density right renal lesion which is too small to characterize but most commonly benign in nature in a patient of this age. Gastrointestinal: Appendix partially seen secondary to adjacent unopacified loops of bowel but does not appear grossly inflamed at visualized portion. No dilated loops of bowel to suggest obstruction. There is some prominence the wall of proximal small bowel loops at left side of abdomen IMPRESSION: * No evidence of bowel obstruction or appendicitis. * There is a couple loops of mildly prominent wall small bowel the left-side of the abdomen. Could be from a region of contraction but would correlate with symptoms to ensure there is not a pathologic cause such as enteritis. * Mild periportal edema at the liver. Nonspecific in nature and could be related to the patient's hydration status with other causes such as hepatitis or cholangitis is not excluded. Electronically signed by: Celso Coppola MD (03/02/2021 11:47 AM) DESKTOP- [id number] DICTATED AND SIGNED BY: CELSO COPPOLA MD DATE: 03/02/21 1128 CC: SANA SCHOFIELD DO; PCP,NO ~MTH0 0 Heart Score: C/O Chest Pain: N/A Risk Factors: Risk Factors: DM, Current or recent (<one month) smoker, HTN, HLP, family history of CAD, obesity. Risk Scores: Score 0 - 3: 2.5% MACE over next 6 weeks - Discharge Home Score 4 - 6: 20.3% MACE over next 6 weeks - Admit for Clinical Observation Score 7 - 10: 72.7% MACE over next 6 weeks - Early Invasive Strategies Course & Med Decision Making: Course & Med Decision Making Pertinent Labs and Imaging studies reviewed. (See chart for details) The patient's CT of the abdomen and pelvis is negative for acute findings. T here are some incidental findings. See official read for details. His lipase is elevated over 1 thousand. His labs are otherwise unremarkable. I have given him Benadryl, Zofran, saline, Toradol, and fentanyl for his pain and nausea. His urine drug screen is negative except for marijuana. I will admit the patient hospital for pancreatitis. I spoke with Dr. Pierre, the hospitalist and he has accepted the patient for admission at 1203. [] Dragon Disclaimer: Dragjim Disclaimer: This electronic medical record was generated, in whole or in part, using a voice recognition dictation system. Departure Departure: Impression: Primary Impression: Acute pancreatitis Qualified Codes: K85.90 - Acute pancreatitis without necrosis or infection, unspecified Disposition: ADMITTED INPATIENT Admitting Physician: Quentin Pierre Condition: STABLE Referrals: PCP,JOHNNY (PCP) SANA SCHOFIELD DO Mar 02, 2021 09:20
[2021-03-02 09:23] LABS: BASO # 0.2 x10^3/uL (0.0-0.2); BASO % 1 % (0-3); EOS # 0.1 x10^3/uL (0.0-0.7); EOS % 1 % (0-3); HEMATOCRIT 42.7 % (39.0-53.0); HEMOGLOBIN 14.3 g/dL (13.0-17.5); LYMPH # 1.5 x10^3/uL (1.0-4.8); LYMPH % 12 % (24-48); MEAN CORPUSCULAR HEMOGLOBIN 31 pg (25-35); MEAN CORPUSCULAR HGB CONC 33 g/dL (31-37); MEAN CORPUSCULAR VOLUME 94 fL (79-100); MONO # 0.9 x10^3/uL (0.0-1.1); MONO % 8 % (0-9); NEUT # 9.6 x10^3uL (1.8-7.7); NEUT % 78 % (31-73); PLATELET COUNT 300 x10^3/uL (140-400); RED BLOOD COUNT 4.57 x10^6/uL (4.30-5.70); RED CELL DISTRIBUTION WIDTH 13.7 % (11.5-14.5); WHITE BLOOD COUNT 12.4 x10^3/uL (4.0-11.0)
[2021-03-02 09:29] LABS: CALCIUM 9.2 mg/dL (8.5-10.1); GFR 82.3; POTASSIUM 3.4 mmol/L (3.5-5.1)
[2021-03-02] MEDS ORDERED: diphenhydrAMINE 50 MG/ML VIAL IVP ONE (09:30)
[2021-03-02] MEDS ORDERED: KETOROLAC 30 MG/ML VIAL. IVP ONE (09:30)
[2021-03-02 09:35] LABS: ALBUMIN 4.3 g/dL (3.4-5.0); ALBUMIN/GLOBULIN RATIO 1.4 (1.0-1.7); TOTAL BILIRUBIN 0.7 mg/dL (0.2-1.0); TOTAL PROTEIN 7.4 g/dL (6.4-8.2)
[2021-03-02] MEDS ORDERED: IOHEXOL 300 MG/ML 75 ML VIAL. IV ONE (10:30)
--- NOTE | 2021-03-02 11:18 | EKG ---
[address] [address] Test Date: 2021-03-02 Test Time: 08:56:23 Pat Name: DARRIN SINGH Department: Room: Gender: M [employer] Lead: ROBERTO : 1980 Requested By: SANA SCHOFIELD Order Number: [id number] Reading MD: Emiliano Parmar Measurements Intervals [place] Rate: 54 P: DE: QRS: 79 QRSD: 118 T: 69 QT: 446 QTc: 425 Interpretive Statements PROBABLE SINUS RHYTHM PACS NONSPECIFIC ST T WAVE CHANGES Electronically Signed On 03-05-2021 10:25:57 MOCCASIN SEWER by Emiliano Parmar
[2021-03-02 11:42] LABS: BARBITURATES NEG (NEG); BENZODIAZEPINES NEG (NEG); CANNABINOIDS POS (NEG); COCAINE NEG (NEG); METHADONE NEG (NEG); OPIATES NEG (NEG); PHENCYCLIDINE NEG (NEG)
[2021-03-02 11:43] LABS: AMPHETAMINE/METHAMPHETAMINE NEG (NEG)
--- NOTE | 2021-03-02 11:49 | RAD ---
INDICATION: Reason: pancreatitis / Spl. Instructions: / History: Abdomen pain. COMPARISON: March 2020 TECHNIQUE: Axial CT images were obtained through the abdomen and pelvis with intravenous contrast. One or more of the following individualized dose reduction techniques were utilized for this examinat ion: 1. Automated exposure control; 2. Adjustment of the mA and/or kV according to patient size; 3 . Use of iterative reconstruction technique. FINDINGS: Small hiatal hernia. Vascular: No abdominal aortic aneurysm. Hepatobiliary: Postcholecystectomy changes. Mild low density within periportal region. Pancreas: No adjacent fluid collection. Spleen: Spleen unremarkable. Renal/Bladder: Minimal urine within the bladder. No hydronephrosis. Subcentimeter low-density right r enal lesion which is too small to characterize but most commonly benign in nature in a patient of thi s age. Gastrointestinal: Appendix partially seen secondary to adjacent unopacified loops of bowel but does n ot appear grossly inflamed at visualized portion. No dilated loops of bowel to suggest obstruction. There is some prominence the wall of proximal small bowel loops at left side of abdomen IMPRESSION: * No evidence of bowel obstruction or appendicitis. * There is a couple loops of mildly prominent wall small bowel the left-side of the abdomen. Could b e from a region of contraction but would correlate with symptoms to ensure there is not a pathologic cause such as enteritis. * Mild periportal edema at the liver. Nonspecific in nature and could be related to the patient's hy dration status with other causes such as hepatitis or cholangitis is not excluded. Electronically signed by: Celso Coppola MD (03/02/2021 11:47 AM) [id number]
[2021-03-02 11:52] LABS: BILIRUBIN,URINE NEG (NEG); CLARITY,URINE CLEAR; COLOR,URINE YELLOW; GLUCOSE,URINE NEG (NEG)
[2021-03-02 11:53] LABS: BACTERIA,URINE 0 /HPF (0-FEW); NITRITE,URINE NEG (NEG); RBC,URINE 0 /HPF (0-2); SQUAMOUS EPITHELIAL CELL,UR FEW /LPF; UROBILINOGEN,URINE 0.2 mg/dL (0.2 mg/dL)
[2021-03-02 14:44] VITALS: BP 125/60
[2021-03-02] MEDS: IV NORMAL SALINE 1,000ML 1,000 ML IV SCH (17:42)
[2021-03-02] MEDS: ONDANSETRON PF 4 MG/2 ML VIAL. IVP PRN ×2 (17:54→23:30)
[2021-03-02 20:35] VITALS: BP 98/60
[2021-03-02 22:15] VITALS: BP 98/65
[2021-03-02 23:32] VITALS: BP 119/63
[2021-03-03] MEDS: ONDANSETRON PF 4 MG/2 ML VIAL. IVP PRN ×4 (04:15→21:48)
--- NOTE | 2021-03-03 05:06 | NUR ---
called to notify rio and fentanyl are not helping his pts this morning. pt is currently at 9 of 10 pain scale with 1mg of fentanyl given already. dr ordered an additional 1mg of fentanyl for pain but nothing for nausea.
[2021-03-03 06:42] VITALS: BP 117/76
[2021-03-03] MEDS: IV NORMAL SALINE 1,000ML 1,000 ML IV SCH ×2 (07:31→21:49)
[2021-03-03] MEDS ORDERED: FLU VACC QUAD 21-22 (6MOS+) PF 0.5 ML SYRINGE. VAX IM ONE (09:00)
[2021-03-03] MEDS: HYDROmorphone PF 1 MG/ML DISP.SYRIN IVP PRN ×3 (10:10→21:49)
--- NOTE | 2021-03-03 10:46 | HP ---
DATE OF SERVICE: 03/03/2021 ADMIT DATE: 03/02/2021 ATTENDING PHYSICIAN: Dr. Pierre. SUBJECTIVE: Abdominal pain. HISTORY OF PRESENT ILLNESS: The patient is a 40-year-old gentleman admitted with nausea, vomiting and epigastric pain. He has a longstanding history of idiopathic pancreatitis, heavy alcohol use until 2014. He adamantly states that he has not had any alcohol for the last several years. He has had previous idiopathic pancreatitis. Gallbladder is gone, previous cholecystectomy. In the ED, the CT scan was fairly unremarkable. Lipase level is elevated over 1000. He is admitted then for idiopathic pancreatitis and treatment of symptoms. No recent COVID exposure. He states he has been eating healthy without any variants. He had an episode a year ago and 2 years ago. PAST MEDICAL HISTORY: Significant for chronic alcoholism. He quit in 2014. He has some substance abuse with urine positive for tetrahydrocannabinol. CURRENT MEDICATIONS: He was not on any scheduled meds. He was given Protonix and ondansetron on an as needed basis. SOCIAL HISTORY: He quit smoking a year ago. Alcohol use is noted. FAMILY HISTORY: Noncontributory. REVIEW OF SYSTEMS: No recent COVID exposure. All other systems reviewed and turned to be negative. PHYSICAL EXAMINATION: GENERAL: When I saw him, this is a pleasant, healthy young male. INITIAL VITAL SIGNS: Initial vital signs showed a blood pressure 117/76, pulse is 100 and regular. He was afebrile, oxygen saturation 92% on room air. HEENT: Head is without trauma. Pupils are reactive. Sclerae nonicteric. Oropharynx is clear. NECK: Supple, no bruits. LUNGS: Good breath sounds. CARDIOVASCULAR: Showed regular heart tones. No gallops. ABDOMEN: Soft. Minimal guarding. No rebound tenderness. EXTREMITIES: Without edema. NEUROLOGIC: Function focally intact. Speech is fluent. PERTINENT LABORATORY STUDIES: Admission hemoglobin was 14.3 g/dL, white count 12,400. Chemistry panel: Normal electrolytes, BUN and creatinine, lipase level is 1049. Transaminases are normal. IMAGING STUDIES: No acute obstruction or obvious pancreatitis on CT. ASSESSMENT: 1. A 40-year-old gentleman with idiopathic pancreatitis. He states he quit drinking several years ago. 2. History of chronic alcoholism. 3. Substance abuse. 4. Nausea and vomiting related pancreatitis. PLAN: 1. Admit to the inpatient unit. 2. N.p.o. except for ice chips. 3. Pain and nausea control. 4. Gentle IV hydration. 5. We will advance diet as tolerated. ITZ DR: EDNA/sasha TID: [id number]
[2021-03-03 11:14] VITALS: BP 117/57
[2021-03-03 11:20] LABS: BILIRUBIN,URINE SMALL (NEG); CLARITY,URINE CLEAR; COLOR,URINE YELLOW; GLUCOSE,URINE NEG (NEG)
[2021-03-03 11:21] LABS: BACTERIA,URINE 0 /HPF (0-FEW); NITRITE,URINE NEG (NEG); RBC,URINE 0 /HPF (0-2); SQUAMOUS EPITHELIAL CELL,UR OCC /LPF; UROBILINOGEN,URINE 0.2 mg/dL (0.2 mg/dL); WBC,URINE 0 /HPF (0-4)
[2021-03-03 15:02] VITALS: BP 114/65
[2021-03-03 19:08] VITALS: BP 119/75
[2021-03-03 22:33] VITALS: BP 126/70
[2021-03-04] MEDS: ONDANSETRON PF 4 MG/2 ML VIAL. IVP PRN ×3 (05:12→20:46)
[2021-03-04 05:18] VITALS: BP 129/77
[2021-03-04] MEDS: IV NORMAL SALINE 1,000ML 1,000 ML IV SCH (08:00)
[2021-03-04] MEDS: HYDROmorphone PF 1 MG/ML DISP.SYRIN IVP PRN ×3 (08:56→20:46)
--- NOTE | 2021-03-04 09:34 | PN ---
DATE: 03/04/2021 ATTENDING PHYSICIAN: Dr. Pierre. SUBJECTIVE: He is better. Pain is moderate. He is a bit hungry. OBJECTIVE FINDINGS: VITAL SIGNS: Blood pressure this morning is 129/77 mmHg, pulse is 82 and regular. He is afebrile. Oxygen saturation 97% on room air. HEENT: Head is without trauma. Pupils are reactive. Sclerae nonicteric. Oropharynx clear. NECK: Supple. LUNGS: Clear. CARDIOVASCULAR: Regular heart tones. ABDOMEN: Soft. Minimal guarding. No rebound tenderness. Good bowel sounds. EXTREMITIES: Show no cyanosis or edema. NEUROLOGIC FUNCTION: Focally intact. ASSESSMENT: 1. A 40-year-old gentleman with recurrent pancreatitis. He states he has quit drinking. 2. Chronic alcoholism in the past. 3. Substance abuse. 4. Nausea and vomiting, improved. PLAN: 1. Advance diet to full liquids. 2. Pain medications as ordered. 3. Discontinue IV fluids. 4. Tentative discharge plans for tomorrow. SHWETA DR: Jacob TID: [id number]
[2021-03-04 10:34] VITALS: BP 137/74
[2021-03-04 15:25] VITALS: BP 120/65
[2021-03-04 19:50] VITALS: BP 133/84
[2021-03-05] MEDS: ONDANSETRON PF 4 MG/2 ML VIAL. IVP PRN (05:14)
[2021-03-05] MEDS: HYDROmorphone PF 1 MG/ML DISP.SYRIN IVP PRN (05:15)
[2021-03-05 09:09] VITALS: BP 120/74
[2021-03-05] MEDS ORDERED: HYDR1TAB16 PO (09:44)
[2021-03-05] MEDS ORDERED: OXYC1TAB22 PO (09:54)
[2021-03-05] MEDS ORDERED: oxyCODONE/APAP 10/325 1 TAB TABLET PO PRN (10:00)
--- NOTE | 2021-03-05 10:18 | DS ---
DATE OF DISCHARGE: 03/05/2021 ATTENDING PHYSICIAN: Dr. Pierre. FINAL DISCHARGE DIAGNOSES: 1. Recurrent pancreatitis. 2. Chronic alcoholism in the past. 3. Substance abuse. 4. Nausea and vomiting. HISTORY OF PRESENT ILLNESS: The patient is a 40-year-old gentleman with a longstanding history of alcoholic pancreatitis. He states he stopped drinking a year ago. He has recurrent pancreatitis with symptoms. Please refer to the ED note. PHYSICAL EXAMINATION: Please see the dictated note. PERTINENT LABORATORY AND X-RAY STUDIES: Hemoglobin on admission was 14.3 g/dL with white count of 12,400. Lipase level was 1049. Chemistry panel unremarkable. Transaminases are normal. IMAGING STUDIES: CT abdomen and pelvis shows no particular specific focal inflammatory process. No obstruction. COURSE IN HOSPITAL: The patient was admitted. He was started on pain and nausea control, kept n.p.o., diet was advanced and then eventually increased to full liquids and he did well. Vital signs were stable. By the third hospital day, he was feeling better and ready to go home. I called in a script for Percocet 10/325 one every 6 hours p.r.n. pain. Strong encouragement to avoid further alcohol use. He states that he has been clean and sober for many months now. He was discharged then from our hospital in stable condition with explicit drug and followup care. Total discharge time [address]: EDNA/sasha TID: [id number]
--- NOTE | 2021-03-05 11:22 | NUR ---
Discharge note Pt discharged at 1014 via ambulation accompanied by self. pt given written and verbal instructions with verbal statement of understanding received.
== END 2021-03-05 12:38 | disposition home or self-care (01) | DRG 440 ==
LOC: ER 08:45 → 1 SOUTH 12:02
PROVIDERS: ADMIT Hospitalist; ATTEND Hospitalist
DX: K85.00 Idiopathic acute pancreatitis without necrosis or infection (principal); F12.10 Cannabis abuse, uncomplicated; F10.20 Alcohol dependence, uncomplicated; Z20.822 Contact with and (suspected) exposure to COVID-19; Z87.891 Personal history of nicotine dependence; Z90.49 Acquired absence of other specified parts of digestive tract
CPT/HCPCS: 36415; 74177; 80053; 80307; 81001; 83690; 85025; 87426; 93005; 96361; 96374; 96375; J1170; J1200; J1885; J2405; J3010; Q9967; U0003; 99285-25; J7030